=== PATIENT | female | born 1990 | race African-American/Black ===

== ENCOUNTER → 2017-05-14 | Outpatient (CLI) | payer BC ==
--- NOTE | 2017-05-14 18:43 | MRI ---
STUDY: MRI OF THE BRAIN WITHOUT GADOLINIUM History: Bilateral headaches. Migraines. Comparison: None. Technique: Multiplanar multi-sequence MRI of the brain was obtained utilizing standard departmental protocol. Sagittal and axial T1, axial T2, FLAIR, diffusion (DWI/ADC) images through the brain were performed. Findings: The sulci, cisterns, and ventricles are age appropriate. There is no evidence of acute ter ritorial infarction, hemorrhage, mass, mass effect or midline shift. There are no abnormal intra-axi al or extra-axial fluid collections. The major intracranial vascular flow voids are intact. IMPRESSION: 1. No evidence of acute intracranial abnormality. Reported By:
== END ==
LOC: RAD 15:19
PROVIDERS: ATTEND Psychiatry & Neurology Neurology
DX: R51 Headache (principal); R42 Dizziness and giddiness
CPT/HCPCS: 70551; 95819